=== PATIENT | male | born 1960 | race Caucasian/White ===

== ENCOUNTER 2023-07-03 14:50 | Emergency (ER) | payer OTHER, SELFPAY ==
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
[2023-07-03 15:41] VITALS: BP 148/98; PULSE 82; TEMP 36.4; O2SAT 100
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
[2023-07-03] MEDS: ACETAMINOPHEN 500 MG TABLET 1000 MG PO (17:47)
[2023-07-03] MEDS: Please add drug allergy info to patient profile. 1 EACH XX (17:48)
[2023-07-03] MEDS: diazePAM INJ (*CRX) 10 MG/2 ML SYRINGE 5 MG IM (18:43)
[2023-07-03 18:47] VITALS: BP 153/105; PULSE 75; RESP 20; TEMP 36.8; O2SAT 98
== END 2023-07-03 18:53 | disposition home or self-care (01) ==
PROVIDERS: Emergency Provider Physician Assistant; PCP Nurse Practitioner Family
DX: S16.1XXA Strain of muscle, fascia and tendon at neck level, initial encounter (principal); S39.92XA Unspecified injury of lower back, initial encounter; M47.812 Spondylosis without myelopathy or radiculopathy, cervical region; M47.816 Spondylosis without myelopathy or radiculopathy, lumbar region; V44.6XXA Car passenger injured in collision with heavy transport vehicle or bus in traffic accident, initial encounter
CPT/HCPCS: 70450; 72125; 72131; 96372; 99284; A9270; J3360